=== PATIENT | male | born 1995 | race Caucasian/White ===

== ENCOUNTER 2024-06-05 13:32 | Emergency (ER) | payer MEDICAID ==
[~2024-06-05] VITALS: Ht 170.2 cm; Wt 78.5 kg
[2024-06-05 13:53] VITALS: BP_SYST 124; PULSE 65; RESP 16; TEMP 97.9; O2SAT 98
[2024-06-05] MEDS: IBUPROFEN 600 MG TABLET PO ONE (15:12)
== END 2024-06-05 17:10 | disposition home or self-care (01) ==
LOC: SED 13:32
DX: S92.531A Displaced fracture of distal phalanx of right lesser toe(s), initial encounter for closed fracture (principal); W22.8XXA Striking against or struck by other objects, initial encounter; Y93.89 Activity, other specified; Y92.89 Other specified places as the place of occurrence of the external cause; Y99.8 Other external cause status
CPT/HCPCS: 99283